=== PATIENT | female | born 1940 | race Caucasian/White ===

== ENCOUNTER 2017-02-04 11:36 | Inpatient (IN) ==
[2017-02-04 12:37] LABS: MANUAL DIFF NEEDED? NO
[2017-02-04 12:40] LABS: BASO% 0.2 % (0.0-0.8); EOS# 0.09 X1000 (0.0-0.7); EOS% 1.1 % (0.0-10.0); HEMATOCRIT 34.7 % (37.0-47.0); HEMOGLOBIN 10.5 g/dL (12.0-16.0); LYMPH# 1.78 X1000 (1.2-3.4); LYMPH% 22.1 % (20.5-51.1); MCH 26.6 PG (27-31); MCHC 30.3 g/dL (33-37); MCV 88.1 FL (81-99); MONO# 0.36 X1000 (0.11-0.59); MONO% 4.5 % (1.7-9.3); MPV 11.3 FL (7.4-10.4); NEUT% 72.1 % (42.2-75.2); PLT 350 X1000 (130-400); RBC 3.94 XMIL (4.2-5.4)
[2017-02-04 12:48] LABS: AGAP 12; ALBUMIN 3.8 g/dL (3.5-5.0); ALKALINE PHOSPHATASE 60 U/L (32-104); AMYLASE 73 U/L (20-200); BUN 6 mg/dL (8-22); CHLORIDE 106 mmol/L (98-107); COSMO 283; GOT 15 U/L (10-30); GPT 5 U/L (10-36); LIPASE 54 U/L (13-60); POTASSIUM 4.1 mmol/L (3.5-5.1); SODIUM 143 mmol/L (136-145); TCO2 25 mmol/L (25-35); TOTAL BILIRUBIN 0.31 mg/dL (0.20-1.00); TOTAL PROTEIN 6.6 g/dL (6.3-8.3)
[2017-02-04 13:52] LABS: URINE CULTURE NEEDED? NO; URINE MICRO REVIEW NEEDED? NO; URINE SOURCE CLEAN CATCH
[2017-02-04 13:56] LABS: BILIRUBIN URINE NEGATIVE (NEGATIVE); BLOOD URINE NEGATIVE (NEGATIVE); COLOR YELLOW; GLUCOSE URINE NEGATIVE (NEGATIVE); LEUKOCYTES URINE NEGATIVE (NEGATIVE); NITRITE URINE NEGATIVE (NEGATIVE); PROTEIN URINE NEGATIVE (NEGATIVE); SP GRAVITY URINE 1.007; TURBIDITY URINE CLEAR (CLEAR); UROBILINOGEN URINE NORMAL (NORMAL)
[2017-02-04 13:57] LABS: UR EPITHELIAL CELLS <10 /HPF (<10); URINE BACTERIA NEGATIVE /HPF; URINE RBC <10 /HPF (<10); URINE WBC <10 /HPF (<10)
[2017-02-04] MEDS ORDERED: NORCO-10 PO ONE (14:29)
[2017-02-04] MEDS ORDERED: NS 1,000 ML IV ONE (14:29)
[2017-02-04] MEDS ORDERED: BENTYL PO ONE (14:31)
--- NOTE | 2017-02-04 15:06 | Diag Imaging Result Doc PS360 ---
EXAM: ABDOMEN FLAT/UPRIGHT INDICATION: Diarrhea TECHNIQUE: 2 views COMPARISON: None. FINDINGS: There are unremarkable bowel gas and stool patterns. There is no obstructive bowel pattern. There is no evidence of large volume free abdominal gas. There is no evidence of organomegaly. IMPRESSION: No evidence of acute pathology by plain radiograph. Electronically signed by Adelso Casey 02/04/2017 3:04 PM
[2017-02-04] MEDS ORDERED: ZOFRAN IV PRN (17:51)
[2017-02-04] MEDS ORDERED: NORCO-10 PO PRN (17:51)
[2017-02-04] MEDS ORDERED: BENTYL PO PRN (17:51)
[2017-02-04] MEDS ORDERED: ATIVAN IV PRN (17:51)
--- NOTE | 2017-02-04 17:59 | HISTORY AND PHYSICAL ---
PRIMARY CARE PHYSICIAN: Dr. Deshawn Mccracken. CHIEF COMPLAINT: Intractable diarrhea. HISTORY OF PRESENT ILLNESS: A 76-year-old white female with a very complicated past medical history presents for evaluation of above-mentioned symptoms. Current history of present illness began last week. At that time, patient was evaluated by Dr. Miles with an EGD intervention. I do not have the official report, but patient states she tolerated this very well. She was contacted on Sunday with regards to biopsy results. Patient was informed that she tested positive for H. pylori. She was started on a multidrug intervention. In addition, patient discussed significant constipation with Dr. Miles's staff. The patient was instructed to start magnesium citrate as a 1 time dose and MiraLAX/Colace. Patient initiated therapy for her H. pylori and constipation on Sunday. On Sunday, patient began to develop loose stools. The patient states that this did not limit her activity on Sunday but by , the diarrhea had become persistent. The patient noted decreased p.o. intake as well as a feeling of ill being. She denied fevers, chills, hematochezia, or melena. By Sunday symptoms had become intolerable. The patient contacted Dr. Miles's office. Antibiotics, MiraLAX and Colace were discontinued. By the evening, patient required medical assistance. Patient was seen in the emergency department. At that time, patient described having frequent "shaking." She was diagnosed with polypharmacy and underlying anxiety. A Xanax prescription was provided. Unfortunately, this did not prove effective. On Sunday her symptoms persisted and included a headache. She went to [facility] last night. She was found to be hypokalemic. She was treated with replacement and IV fluids. Unfortunately, her symptoms persist today. She presents to the emergency department for further evaluation and management. She continues to have frequent loose stools and intermittent chills. She has had minimal p.o. intake. She denies nausea, vomiting, or fevers. She states her anxiety is better controlled. The patient will be admitted to the hospital for full evaluation and management of outpatient failure of intractable diarrhea with associated dehydration. Of note, patient has not taken her medications routinely since . These include both Embeda and [place] therapy. PAST MEDICAL HISTORY: 1. Abnormal electrocardiogram with nonspecific ST depression in the lateral leads. 2. Allergic rhinitis. 3. Left renal nodule followed by Dr. Ervin. 4. Colonic diverticulosis, but no history of diverticulitis. 5. Depression/anxiety. 6. Reflux disease. 7. Hypertension. 8. Hypertriglyceridemia. 9. Premenopausal menorrhagia status post total vaginal hysterectomy in 1968. 10. Hyperlipidemia. 11. Hypothyroidism. 12. Chronic low back pain status post multiple interventions currently requiring evaluation and management at a pain clinic. 13. Migraine headaches. 14. Mild mitral regurgitation. 15. Osteopenia. 16. Palpitations. 17. History of colonic polyps. 18. Postmenopausal state treated with hormone replacement. 19. History rheumatic fever at age 5. 20. Abnormal skin examination with multiple skin tags, seborrheic keratoses, and an occasional verrucous. 21. History of cervical spinal stenosis. CURRENT MEDICATIONS: 1. Amlodipine 2.5 mg daily. 2. Atorvastatin 20 mg at bedtime. 3. Boniva 150 mg monthly. 4. Bupropion ER 150 mg daily. 5. Claritin 10 mg daily as needed. 6. Lexapro 20 mg daily. 7. Estradiol 1 mg daily. 8. Levothyroxine 50 mcg daily. 9. Losartan 50 mg daily. 10. Metoprolol ER 25 mg daily. 11. [place] 10/325 one tablet twice daily as needed. 12. Probiotic. 13. Embeda unknown dose twice daily. ALLERGIES: Patient states she is allergic to codeine which causes vomiting, dexamethasone which causes chest pain, Mepergan Fortis which causes an unknown reaction, and Neurontin which causes headaches. SOCIAL HISTORY: Patient previously smoked 1/2 to 1 pack per day for 22 years. She stopped in the . She denies alcohol or illicit drug use. She works as a homemaker. She exercises routinely. Patient's father passed at age 69 secondary to complications of congestive heart failure. Patient's mother passed at age 95 secondary to complications of a stroke. REVIEW OF SYSTEMS: A 12 point review of systems was performed. Pertinent positives and negatives noted in history present illness. PHYSICAL EXAMINATION: VITAL SIGNS: Temperature 97.6 degrees, heart rate 69, respirations 18, blood pressure is 120/64. GENERAL: Ill-appearing in no acute distress. HEENT: Normocephalic, atraumatic. Pupils are equal, round, reactive to light. Extraocular muscles intact. Sclerae anicteric. [place] conjunctivae. Oral and nasopharynx clear without exudate. NECK: Supple. No lymphadenopathy. No thyromegaly. No bruits auscultated. CARDIOVASCULAR: Regular rate and rhythm. No significant murmurs, rubs, or gallops. PULMONARY: Clear to auscultation bilaterally. ABDOMEN: Soft, nontender, nondistended. Positive bowel sounds. EXTREMITIES: Moves all extremities well. No significant clubbing, cyanosis, or edema. NEUROLOGIC: Cranial nerves 2 through 12 grossly intact. Motor and sensory grossly intact. PSYCHOLOGIC: Examination is appropriate. LABORATORY DATA: White blood cell count 8.05, hemoglobin 10.5, hematocrit 34.7, platelet count 350,000. Sodium 143, potassium 4.1, chloride 106, bicarb 25, BUN 6, creatinine 0.7, glucose 106, calcium 9.0, total bilirubin 0.31, total protein 6.6, albumin 3.8, alkaline phosphatase 60, AST 15, ALT 5. Urinalysis returned negative. Abdominal x-ray results are pending at the time of admission. ASSESSMENT AND PLAN: A 76-year-old white female with a very complicated past medical history, presents for evaluation and management of intractable diarrhea. The patient will be admitted to the hospital for full evaluation and management of this condition as she has failed outpatient therapy. 1. Admit to General Medicine. 2. Intractable diarrhea-at this point, patient has failed multiple emergency room evaluations. I am concerned this likely is multifactorial. Patient recently has been treated with MiraLAX, magnesium citrate, and Colace. This likely precipitated her event, however this has remained persistent. We will keep in mind the possibility of opportunistic infection as she was treated with antibiotics. In addition, irritability as well as well as withdrawal symptoms will need to be considered as a potential cause. We will check stool studies. We will start patient on as-needed Bentyl. We will plan to resume patient's Embeda and [place] as she could be exhibiting some withdrawal symptoms. Should symptoms persist, we will have a low threshold for GI consultation. 3. Profound weakness-unfortunately, patient presents profoundly weak, likely secondary to her persistent diarrhea. We will treat patient's diarrhea as above. We will start aggressive hydration. We will consider whether physical therapy is appropriate. We will follow this. 4. Dehydration-clinically, patient does appear to be mildly dehydrated. We will start patient on IV hydration. 5. Chronic lumbar spine pain-patient has a prolonged history. She has attempted multiple interventions. Unfortunately, this persists. Of note, patient recently discontinued her medication. Certainly withdrawal could be playing a role in some of her symptoms. We will resume therapy. 6. Anxiety-this, unfortunately, is also significant. We will continue her home medications and add as-needed Ativan. 7. Reflux disease-we will resume routine omeprazole therapy. This will be followed. 8. Helicobacter pylori gastritis-at this point, patient is not a candidate for aggressive treatment. We will plan to re-discuss this upon improvement of her overall condition with Dr. Miles. 9. Hyperlipidemia-we will continue atorvastatin therapy. 10. Migraine headaches-patient continues to have intermittent symptoms. We will resume home pain medications. 11. Fluid, electrolytes, nutrition. We will monitor electrolytes. Normal saline at 75 mL an hour, clear liquid diet. 12. Prophylaxis. Patient will be placed on SCDs. cc: Deshawn Mccracken MD
[2017-02-04] MEDS: NS 1,000 ML IV SCH (18:28)
[2017-02-04] MEDS ORDERED: MAXALT PO ONE (19:44)
[2017-02-04] MEDS ORDERED: LIPITOR PO SCH (21:00)
[2017-02-04] MEDS ORDERED: PATIENT'S OWN MED PO SCH (21:00)
[2017-02-05] MEDS: NS 1,000 ML IV SCH (06:32)
[2017-02-05] MEDS ORDERED: PRILOSEC PO SCH (07:00)
[2017-02-05] MEDS ORDERED: SYNTHROID PO SCH (07:00)
[2017-02-05] MEDS ORDERED: ASPIRIN PO SCH (09:00)
[2017-02-05] MEDS ORDERED: TOPROL XL PO SCH (09:00)
[2017-02-05] MEDS ORDERED: WELLBUTRIN XL PO SCH (09:00)
[2017-02-05] MEDS ORDERED: CULTURELLE PO SCH (09:00)
[2017-02-05] MEDS ORDERED: NORVASC PO SCH (09:00)
[2017-02-05] MEDS ORDERED: ESTRACE PO SCH (09:00)
[2017-02-05] MEDS ORDERED: LEXAPRO PO SCH (09:00)
[2017-02-05] MEDS ORDERED: COZAAR PO SCH (09:00)
[2017-02-05] MEDS ORDERED: MAXALT MLT PO PRN (10:28)
[2017-02-05] MEDS ORDERED: MAXALT PO PRN (11:12)
[2017-02-05 20:03] VITALS: BP 165/64
--- NOTE | 2017-02-06 10:54 | DISCHARGE SUMMARY ---
ADMISSION DATE: 02/04/2017 DISCHARGE DATE: 02/05/2017 DISCHARGE DIAGNOSES: 1. Intractable diarrhea, improving. 2. Profound weakness, improving. 3. Dehydration, improving. 4. Chronic lumbar spine pain, present on arrival. 5. Anxiety, present on arrival. 6. Reflux disease, present on arrival. 7. Recent history of Helicobacter pylori gastritis, present on arrival. 8. Hyperlipidemia, present on arrival. 9. Migraine headaches, present on arrival. CONSULTATIONS: None. PROCEDURES: An abdominal x-ray was performed on 02/04/2017, which revealed no evidence of acute pathology by plain radiograph. HISTORY AND PHYSICAL EXAMINATION: See admit note. PHYSICAL EXAMINATION PRIOR TO DISCHARGE: Vital Signs: Temperature 97.9 degrees, heart rate 55, respirations 17, blood pressure is 165/64. General: Well nourished, well developed, no acute distress. Cardiovascular: Regular rate and rhythm. No significant murmurs, rubs, or gallops. Pulmonary: Clear to auscultation bilaterally. Abdomen: Soft, nontender, nondistended. Positive bowel sounds. Extremities: Moves all extremities well. No significant clubbing, cyanosis, or edema. Dermatologic: No evidence of rash. LABORATORY DATA PRIOR TO DISCHARGE: None. HOSPITAL COURSE: The patient was admitted as per history and physical examination. Hospital course by condition is as follows: 1. Intractable diarrhea. Upon admission, the patient was noted to have intractable diarrhea. The patient had been seen in the emergency department on the 2 previous days. Because of her intractable symptoms, the patient was placed in the hospital and treated with aggressive IV hydration. Stool studies were sent. Fecal white blood cells returned negative. Clostridium difficile toxin returned negative. Hemoccult was noted to be slightly positive. With aggressive hydration and time, the patient's overall condition improved considerably. At the time of discharge, it was felt that her intractable diarrhea likely was iatrogenic secondary to recent medications for constipation. We will encourage adequate hydration as an outpatient. For now, we will follow this. 2. Profound weakness. Upon admission, the patient was noted to be profoundly weak secondary to her intractable diarrhea. With aggressive IV hydration and treatment of her underlying diarrhea, the patient has achieved improvement, although not back to baseline. For now, we will encourage activity. 3. Dehydration. The patient was noted to be modestly dehydrated upon admission. She has achieved euvolemia with aggressive hydration. 4. Chronic lumbar spine pain. The patient is currently prescribed Embeda and [place]. She is considering lumbar spine surgical intervention by Dr. Anderson. During this acute illness, the patient has not taken any Embeda. She has seen no significant change in her clinical situation. At this point, I have offered that the patient could stop the Embeda. We will continue as needed [place]. We will follow this for now. We will plan to discuss surgical intervention further in the near future. 5. Anxiety. The patient's anxiety level is significant at present time. We will continue her current medications for now. While hospitalized, she was treated with a dose of Ativan with significant improvement. We will consider adding this as needed as an outpatient. 6. Reflux disease. The patient's symptoms remain controlled with omeprazole therapy. 7. Helicobacter pylori gastritis. The patient recently attempted eradication, but was unable to tolerate secondary to GI side effects. We will plan to discuss this further with Dr. Miles as an outpatient. 8. Hyperlipidemia. The patient was continued on atorvastatin therapy. 9. Migraine headaches. The patient continues to have intermittent symptoms. We will continue as needed Maxalt. DISCHARGE CONDITION: Good. DISPOSITION: Discharged to home. MEDICATIONS: 1. Maxalt 10 mg daily as needed. 2. Lexapro 20 mg daily. 3. Aspirin 81 mg daily. 4. Levothyroxine 150 mcg daily. 5. Estradiol 1 mg daily. 6. Amlodipine 2.5 mg daily. 7. Atorvastatin 20 mg at bedtime. 8. Probiotic 1 capsule daily. 9. [place] 10/325 twice daily as needed. 10. Losartan 50 mg daily. 11. Metoprolol ER 25 mg daily. 12. Embeda 50/2 one tablet daily. 13. Bupropion ER 150 mg daily. FOLLOWUP: The patient is to follow with me in approximately 1 to 2 weeks. cc: Deshawn Mccracken MD
== END 2017-02-05 20:20 | disposition home or self-care (01) ==
LOC: ED 11:36 → EDIPHOLD 15:27 → 3N 22:51
PROVIDERS: ADMIT Internal Medicine; ATTEND Internal Medicine